=== PATIENT | male | born 1975 | race Caucasian/White ===

== ENCOUNTER → 2016-05-27 | Outpatient (CLI) | payer BC ==
--- NOTE | 2016-05-28 05:47 | SPLIT NIGHT TECHNICIAN REPORT ---
[facility] Split Night Polysomnogram - Cinema Or Theatre Manager Report Study date: 05/27/2016 Referring Physician: Tavo Ann Pulmonary Name: MADDY NGUYỄN Cinema Or Theatre Manager: FARZANA Dudley. Date of : 1975 Height: 40 years, Height 6' 1" Sex: Male Weight: 269 lbs Age: 40 Neck Circum: 18 inches BMI: Medications: 35.49 Pantoprazole, Ranitidine Patient History 40 yr. old male here for a modified split night sleep study is AHI is > 15. Patient complains of witnessed apneas and snoring. Patients [place] sleepiness scale score is 12/24. Parameters Monitored NPSG: E1-M2, E2-M1, Fp1-M2, Fp2-M1, F3-M2, F4-M2, F4-M1, C3-M2, C4-M2, C4-M1, O1-M2, O2-M2, O2-M1, T3-M2, T4-M1, P3-M2, P4-M1, CHIN1, CHIN2, HR, EKG, Legs, PFLOW, SNOR, FLOW, CFLOW, Tidal Volume, THOR, ABDO, SpO2, PLTH, CPRESS, ETCO2 Wave, ETCO2, pH SLEEP SUMMARY DATA DIAGNOSTIC TREATMENT Lights Out: 9:35:07 PM 12:53:37 AM Lights On: 12:44:07 AM 5:35:07 AM Total Recording Time (TRT): 187.0 min. 280.5 min. Total Sleep Time (TST): 123.5 min. 232.5 min. NREM Time: 123.5 min. 189.0 min. REM Time: 0.0 min. 43.5 min. Sleep Period Time (SPT): 157.0 min. 268.5 min. Sleep Efficiency (SE): 66 % 83 % Sleep Latency: 30.0 min. 13.0 min. Arousal Index: 19.9 10.1 PAP Treatment Levels: 4, 5, 6, 7, 8, 9, 10 * Optimal Pressure(s) SLEEP STAGING DATA DIAGNOSTIC TREATMENT Duration (min) TST % Duration (min) TST % Stage Wake: 63.5 min. -- 48.0 min. -- WASO: 35.5 min. -- 36.0 min. -- NREM: 123.5 min. 100 % 189.0 min. 81 % Stage N1: 30.5 min. 25 % 39.5 min. 17 % Stage N2: 66.0 min. 53 % 87.5 min. 38 % Stage N3: 27.0 min. 22 % 62.0 min. 27 % REM: 0.0 min. 0 % 43.5 min. 19 % POSITIONAL DATA Event Count Index Event Count Index Supine: 105 77.3 53 24.7 Supine NREM: 105 77.3 52 28.4 Supine REM: N/A N/A 1 3 Non-Supine: 43 60.0 30 17.4 Non-Supine NREM: 43 60.0 28 21.3 Non-Supine REM: N/A N/A 2 4.9 AROUSAL SUMMARY DATA: Event Count Index Event Count Index Apnea Arousals: 1 1.9 7 2.3 Hypopnea Arousals: 16 7.8 18 4.6 Snore Arousals: 12 5.8 9 2.3 PLM Arousals: 1 0.5 1 0.3 Non-Specific Arousals: 11 5.3 15 3.9 Total Arousals: 41 19.9 39 10.1 MYOCLONUS (PLM) Event Count Index Event Count Index PLM: 6 2.9 3 0.8 PLM AROUSAL: 1 0.5 1 0.3 PLM W/O AROUSAL 6 2.9 2 0.5 PLM W/RESP EVENT 0 0.0 0 0.0 MYOCLONUS (PLM) Event Count Index Event Count Index LM: 3 18.5 7 1.8 LM AROUSAL: 3 1.5 0 0.0 LM W/O AROUSAL LM W/RESP EVENT LM NON SPECIFIC 33 16.0 9 2.3 HEART RATE DATA DIAGNOSTIC TREATMENT Sleep (bpm): 73 73 REM (bpm): N/A 92 NREM (bpm): 91 93 Tachycardia Count: 0 0 Tachycardia Duration: 0.00 0 Bradycardia Count: 0 0 Bradycardia Duration: 0.00 0 DIAGNOSTIC PORTION TREATMENT PORTION RESPIRATORY DATA Event Count Index Event Count Index AHI: -- 71.4 -- 21.4 RDI: -- 71.9 -- 21 Obstructive Apnea: 1 0.5 3 0.8 Central Apnea: 1 0.5 6 1.5 Mixed Apnea: 2 1.0 0 0.0 Hypopnea: 143 69.5 74 19.1 RERA: 1 0.5 0 0.0 Total Apneas: 4 1.9 9 2.3 RESPIRATORY DATA REM NREM SLEEP REM NREM SLEEP Supine Position: Obstructive Apneas: N/A 1 1 0 2 2 Central Apneas: N/A 1 1 0 3 3 Mixed Apneas: N/A 1 1 0 0 0 Hypopneas: N/A 102 102 1 47 48 RERA N/A 0 0 0 0 0 Total Supine Events: N/A 105 105 1 52 53 Supine AHI: N/A 77.3 77.3 3 28.4 24.7 Supine RDI: N/A 77.3 77.3 3.2 28.4 24.7 REM NREM SLEEP REM NREM SLEEP Non-Supine Position: Obstructive Apneas: N/A 0 0 0 1 1 Central Apneas: N/A 0 0 0 3 3 Mixed Apneas: N/A 1 1 0 0 0 Hypopneas: N/A 41 41 2 24 26 RERA N/A 1 1 0 0 0 Total Supine Events: N/A 43 43 2 28 30 Supine AHI: N/A 60.0 60.0 4.9 21.3 17.4 Supine RDI: N/A 61.4 61.4 4.9 21.3 17.4 OXYGEN DESTAURATION DATA: Event Count Index Event Count Index REM Desaturations: N/A N/A 3 4.1 NREM Desaturations: 164 79.7 88 27.9 SNORE DATA DIAGNOSTIC TREATMENT Snore Time: 10.6 1:06:37 AM Snore TST%: 4 4 Snore Arousal Count: 12 9 Snore Arousal Index: 5.8 2.3 Desaturation Event Summary: Minimum %SpO2 Event Count Mean/Min/Max Duration(sec.) Desaturation Index % Time In Bed > 90 297 20.0 / 5.0 / 60.0 45.1 84.6 86 - 90 39 13.4 / 5.0 / 30.3 33.1 15.1 81 - 85 0 N/A 0.0 0.2 76 - 80 0 N/A 0.0 0.0 71 - 75 0 N/A 0.0 0.0 66 - 70 0 N/A 0.0 0.0 61 - 65 0 N/A 0.0 0.0 56 - 60 0 N/A 0.0 0.0 51 - 55 0 N/A 0.0 0.0 < 50 0 N/A 0.0 0.0 OXYGEN SATURATION DATA DIAGNOSTIC TREATMENT SpO2 Mean Sleep: 91 % 93 % SpO2 Mean REM: N/A % 92 % SpO2 Mean NREM: 91 % 93 % SpO2 Minimum Sleep: 84 % 82 % SpO2 Minimum REM: N/A % 89 % SpO2 Minimum NREM: 84 % 82 % Time Below 90% (TST): 27.5 7.1 Time Below 88% (TST): 5.3 1.9 Total REM NREM Awake <50% 0.0 min. 0.0 min. 0.0 min. 0.0 min. 51 - 60% 0.0 min. 0.0 min. 0.0 min. 0.0 min. 61 - 70% 0.0 min. 0.0 min. 0.0 min. 0.0 min. 71 - 80% 0.0 min. 0.0 min. 0.0 min. 0.0 min. 81 - 90% 71.8 min. 1.6 min. 59.3 min. 10.9 min. 91 - 100% 395.3 min. 41.9 min. 253.2 min. 100.2 min. Average 92 92 92 93 Minimum SpO2 82 89 82 83 Desaturation Event Index 38.5 4.1 48.4 27.4 # Desat. Events below 89% 129 N/A 112 17 Time(%) with Saturation below 89% 4.3 0.0 3.7 0.6 Time(min.) with Saturation below 89% 20.3 0.0 17.3 3.0 Recording Cinema Or Theatre Manager Comments: Mr. Nguyễn slept in the right, left, and supine positions. No cardiac arrhythmia or PLMs noted. No bruxism noted. Snoring was noted and scored as a 4 on a scale of 0 through 5. (0=no snoring, 5=snoring loud enough to be heard through a closed door or down the [address]) At 12:53 am , Mr. Nguyễn met specific Split-Night criteria during the diagnostic portion of this study. CPAP was initiated at +4 CMH2O room air and up-titrated to a of +10 CMH2O No Cflex. A medium Quattro air, was used during titration. Mr. Nguyễn did not wake to use the during the night. Mr. Nguyễn stated, I did not sleep as well as I do when I am in my own bed. The final report will be interpreted and signed by a sleep physician. The completed physician report will then be placed in the patient medical record. Therapy Event: Therapy (cm H20) 0 4 5 6 7 8 9 10 Total Time at Pressure (min.) 187.0 49.0 5.0 70.5 10.9 86.1 22.3 36.8 TST at Pressure (min.) 123.5 19.0 5.0 68.0 10.9 82.1 17.5 30.0 # Periods 1 1 1 1 1 1 1 1 Sleep Onset (min.) 30.0 13.0 0.0 0.0 0.0 0.0 0.0 0.3 REM Onset (min.) N/A N/A N/A 33.0 N/A 54.6 0.0 N/A Sleep Efficiency % 66 38 100 96 100 95 78 81 Wakefulness (%) 34.0 61.2 0.0 3.5 0.0 4.6 21.2 18.4 Wakefulness (min.) 63.5 30.0 0.0 2.5 0.0 4.0 4.7 6.8 NREM 1 (%) 16.3 30.6 10.1 12.1 0.0 9.3 13.5 12.2 NREM 1 (min.) 30.5 15.0 0.5 8.5 0.0 8.0 3.0 4.5 NREM 2 (%) 35.3 8.2 89.9 29.8 100.0 19.9 20.2 69.3 NREM 2 (min.) 66.0 4.0 4.5 21.0 10.9 17.1 4.5 25.5 NREM 3 (%) 14.4 0.0 0.0 19.9 0.0 55.8 0.0 0.0 NREM 3 (min.) 27.0 0.0 0.0 14.0 0.0 48.0 0.0 0.0 REM (%) 0.0 0.0 0.0 34.7 0.0 10.4 45.1 0.0 REM (min.) 0.0 0.0 0.0 24.5 0.0 9.0 10.0 0.0 # Arousals 41 7 1 12 0 10 4 5 Arousal Index 19.9 22.1 12.1 10.6 0.0 7.3 13.7 10.0 # Snore 523 8 28 113 118 22 7 4 Snore Index 254.1 25.2 338.1 99.7 648.7 16.1 23.9 8.0 AHI 71.4 69.4 48.3 18.5 27.5 13.9 27.4 8.0 AHI Supine 77.3 48.0 N/A 78.3 27.5 13.9 27.4 53.3 AHI Non-Supine 60.0 72.6 48.3 6.4 N/A N/A N/A 0.0 NREM AHI 71.4 69.4 48.3 26.2 27.5 14.8 64.0 8.0 REM AHI N/A N/A N/A 4.9 N/A 6.7 0.0 N/A RDI 71.9 69.4 48.3 18.5 27.5 13.9 27.4 8.0 # Obstructive 1 1 0 1 0 1 0 0 # Central Ap 1 3 0 1 0 1 0 1 # Mixed 2 0 0 0 0 0 0 0 # Hypopneas 143 18 4 19 5 17 8 3 RERAS 1 0 0 0 0 0 0 0 Total Respiratory Events 148 22 4 21 5 19 8 4 Time Below SpO2 89.00% (min.) 14.2 1.0 0.0 1.6 0.6 0.0 0.0 0.0 Mean NREM SpO2 (%) 91 93 92 92 91 93 94 93 Mean REM SpO2 (%) N/A N/A N/A 92 N/A 92 93 N/A Mean Sleep SpO2 (%) 91 93 92 92 91 93 94 93 Min NREM SpO2 (%) 84 84 89 82 85 89 90 90 Min REM SpO2 (%) N/A N/A N/A 89 N/A 89 92 N/A Position Supine (min.) 81.5 2.5 0.0 11.5 10.9 82.1 17.5 4.5 Position Non-supine (min.) 42.0 16.5 5.0 56.5 0.0 0.0 0.0 25.5 LM Index Sleep 21.4 0.0 0.0 4.4 0.0 2.2 6.8 0.0 LM Index NREM 21.4 0.0 0.0 1.4 0.0 0.8 0.0 0.0 LM Index REM N/A N/A N/A 9.8 N/A 13.4 12.0 N/A Mean Heart Rate (bpm) 73 69 67 78 66 73 73 65 Min Heart Rate (bpm) 57 58 58 58 61 55 55 54
--- NOTE | 2016-05-29 14:01 | POLYSOMNOGRAPH REPORT ---
REFERRING PHYSICIAN: Dr. Tavo Ann. CLINICAL DATA: The patient is a 40-year-old male with a BMI of 35.49. He was referred by Dr. Tavo Ann. A split study was done. His history is that of snoring, observed apneas, nocturnal gasping, fatigue, and restless legs. His [place] sleepiness scale score is 12 out of a possible 24. SLEEP ARCHITECTURE: For the diagnostic portion of the study, the total sleep period was 157.0 minutes. The total sleep time was 123.5 minutes. The sleep efficiency was 66%. Sleep latency was 30 minutes. The arousal index was 19.9. Sleep consisted of stage N1 25%, stage N2 53%, stage N3 22%, and stage REM 0%. For the treatment portion of the study the sleep period time was 268.5 minutes. The total sleep time was 232.5 minutes. The sleep efficiency was 83%. Sleep latency was 13 minutes. The arousal index was 10.1. Sleep consisted of stage N1 17%, stage N2 38%, stage N3 27%, and stage REM 19%. AROUSAL DATA: During the diagnostic portion of the study, the patient had a total of 41 arousals for an index of 19.9. These included 1 apnea arousal, 16 hypopnea arousals, 12 snoring arousals, 1 PLM arousal, and 11 nonspecific arousals. Following treatment, the patient had 39 arousals for an index of 10.1. These consisted of 7 apnea arousals, 18 hypopnea arousals, 9 snoring arousals, 1 PLM arousal, and 15 nonspecific arousals. PLM DATA: Prior to treatment, the patient had a total of 6 periodic limb movements for an index of 2.9. Following treatment, he had 3 periodic limb movements for an index of 0.8. EKG: The underlying cardiac rhythm was normal sinus. The cardiac rates ranged from 73-93 beats per minute. No arrhythmias were noted. RESPIRATORY DATA: Severe sleep apnea was documented prior to treatment. The diagnostic apnea hypopnea index was 71.4 events per hour. There was 1 obstructive apnea, 1 central apnea, 2 mixed apneas, and 143 hypopneas. Following treatment with nasal CPAP the mean apnea hypopnea index was 21.4. The events including 3 obstructive apneas, 6 central apneas, and 74 hypopneas. At the final pressure of 10 cm the patient had an apnea hypopnea index of 8.0. OXIMETRY DATA: During the diagnostic portion of the study the lowest saturation was 84%. Mean saturation was 91%. The time below 88% was 5.3 minutes. During the treatment portion of the study the patient had a minimum saturation of 82%. The mean saturation was 93%. There was a total of only 1.9 minutes with saturations less than 88%. At the final pressure all saturations were above 90%. CHILDREN COUNSELOR COMMENTS AND TREATMENT SUMMARY: The patient slept in the right, left, and supine positions. No cardiac arrhythmia or PLMs were noted. Snoring was noted as a 4 on a scale of 0 through 5. The patient met specific split night criteria during the diagnostic portion of the study. CPAP was initiated at 4 cm and was titrated up to a final pressure of 10 cm. A medium Quattro Air was used during titration. Following the study, the patient indicated he did not sleep as well as he usually does in his own bed. IMPRESSION: Obstructive sleep apnea -- severe. COMMENTS: The patient has severe sleep apnea. As a result of this a split study was done. He was ultimately treated with nasal CPAP at 10 cm. During the CPAP titration the frequency of his events continued to improve. He still had some residual events at the final pressure of 10 cm with an apnea hypopnea index of 8.0. Oxygenation improved with nasal CPAP. He did develop some REM sleep during the treatment portion of the study. His sleep efficiency improved. RECOMMENDATIONS: 1. It is advised that the patient be started on nasal CPAP at 10 cm. 2. It is suggested that he be ordered a CPAP mask Quattro Air size medium. 3. A weight reduction program is advised in light of the elevation of body mass index of 35.49 kilograms per square cm. 4. The patient should be seen in followup between day 31 and day 90 after he has initiated on nasal CPAP therapy.
== END | disposition home or self-care (01) ==
LOC: C.NEUR 21:00
PROVIDERS: ATTEND Internal Medicine Pulmonary Disease
DX: K21.9 Gastro-esophageal reflux disease without esophagitis (principal); G47.23 Circadian rhythm sleep disorder, irregular sleep wake type

== ENCOUNTER → 2016-06-02 | Outpatient (CLI) | payer BC ==
[~2016-06-02] VITALS: Ht 185.4 cm; Wt 123.0 kg
[2016-06-02 15:30] VITALS: BP_SYST 146; BP_SYST 157; BP_DIAS 100; BP_DIAS 102; PULSE 89; Ht 185.4 cm; Wt 123.0 kg
== END | disposition home or self-care (01) ==
LOC: C.NEUR 14:30
PROVIDERS: ATTEND Internal Medicine Pulmonary Disease
DX: G47.33 Obstructive sleep apnea (adult) (pediatric) (principal)

== ENCOUNTER → 2016-07-25 | Outpatient (CLI) | payer BC | END | disposition home or self-care (01) | LOC: C.LABBC 07:10 | PROVIDERS: ATTEND Family Medicine | DX: Z13.1 Encounter for screening for diabetes mellitus (principal); Z13.220 Encounter for screening for lipoid disorders ==

== ENCOUNTER → 2016-08-22 | Outpatient (CLI) | payer BC ==
[2016-08-22 11:49] LABS: ESTIMATED AVERAGE GLUCOSE 117 mg/dl; HA1C FLAG Normal (Normal)
== END | disposition home or self-care (01) ==
LOC: C.LABBC 07:30
PROVIDERS: ATTEND Family Medicine
DX: R73.01 Impaired fasting glucose (principal)

== ENCOUNTER 2017-04-20 05:01 | Inpatient (IN) | payer BC ==
[~2017-04-20] VITALS: Ht 185.4 cm; Wt 108.2 kg
[2017-04-20] MEDS ORDERED: SODIUM CHLORIDE 0.9% 1000ML 1,000 ML IV STA (05:16)
[2017-04-20] MEDS ORDERED: MoRPHine SULFATE 4 MG/ML 1 ML CARP\\VIAL IV STA (05:16)
[2017-04-20] MEDS ORDERED: ONDANSETRON INJ 2 MG/ML 2 ML VIAL IV STA ×2 (05:16→07:48)
[2017-04-20 06:00] LABS: BASO % 0.4 %; BASO ABS # 0.05 K/uL (0-0.2); EOS % 0.5 %; EOS ABS # 0.06 K/uL (0-0.5); HEMOGLOBIN 17.3 g/dL (14.0-18.0); IG# 0.04 K/uL (0.00-0.02); LYMPH % 12.7 %; LYMPH ABS # 1.66 K/uL (1.2-3.4); MEAN CELL VOLUME 87.6 fL (80-100); MEAN CORPUSCULAR HEMOGLOBIN 30.3 pg (25-34); MEAN CORPUSCULAR HGB CONC 34.6 g/dl (32-36); MEAN PLATELET VOLUME 9.1 fL (7.4-10.4); MONO % 5.8 %; MONO ABS # 0.76 K/uL (0.11-0.59); NEUT % 80.3 %; NEUT ABS # 10.52 K/uL (1.4-6.5); PLATELET COUNT 241 K/uL (130-400); RED CELL DISTRIBUTION WIDTH CV 13.1 % (11.5-14.5); RED CELL DISTRIBUTION WIDTH SD 41.6 fL (36.4-46.3); WHITE BLOOD COUNT 13.09 K/uL (4.8-10.8)
[2017-04-20] MEDS ORDERED: HYDROmorphone INJ 1 MG/ML SYR IV STA ×2 (06:03→07:34)
[2017-04-20 06:10] LABS: ALBUMIN 4.2 gm/dl (3.4-5.0); ALT/SGPT 43 U/L (12-78); AST/SGOT 22 U/L (15-37); BLOOD UREA NITROGEN 17 mg/dl (7-18); CALCIUM 9.3 mg/dl (8.5-10.1); CARBON DIOXIDE 27 mmol/L (21-32); CREATININE 1.38 mg/dl (0.60-1.40); GLUCOSE 133 mg/dl (70-99); LIPASE 96 U/L (73-393); POTASSIUM 4.3 mmol/L (3.5-5.1); SODIUM 135 mmol/L (136-145)
[2017-04-20 06:15] LABS: ALKALINE PHOSPHATASE 122 U/L (45-117); TOTAL PROTEIN 8.6 gm/dl (6.4-8.2)
--- NOTE | 2017-04-20 09:38 | Surgery Consultation ---
Consultation Date of Consultation: Apr 20, 2017. Attending Physician: History of Present Illness pt is a 41 roel old male who presents to ER for one day history RUQ pain, with nausea and vomiting, the pain is located at RUQ, pt denies fever, no diarrhea, Social History Smokeless Tobacco Use: Yes Alcohol Use: occasionally Drug Use: none Allergies Coded Allergies: No Known Allergies (Unverified , 04/20/17) Home Medications No Active Prescriptions or Reported Meds Review of Systems Constitutional: No fever, No chills, No sweats, No weight loss, No weakness, No fatigue, No problem reported Eyes: No worsening of vision, No eye pain, No redness, No discharge, No diplopia, No problem reported ENT: No hearing loss, No unusual epistaxis, No nasal symptoms, No sore throat, No tinnitus, No dental problems, No trouble swallowing, No problem reported Respiratory: No cough, No sputum, No wheezing, No shortness of breath, No dyspnea on exertion, No dyspnea at rest, No hemoptysis, No problem reported Cardiovascular: No chest pain, No orthopnea, No PND, No edema, No claudication , No palpitations, No problem reported Abdomen: + pain, + nausea, + vomiting Musculoskeletal: No joint pain, No muscle pain, No swelling, No calf pain, No problem reported Genitourinary - Male: No hematuria, No dysuria, No urinary frequency, No urinary urgency, No urinary hesitancy, No urinary retention, No urinary incontinence, No penile discharge, No lesions, No impotence, No problem reported Neurologic: No memory loss, No paralysis, No weakness, No numbness/tingling, No vertigo, No balance problems, No problem reported Psychiatric: No depression symptoms, No anhedonism, No anxiety, No insomnia, No substance abuse, No problem reported Endocrine: No fatigue, No excessive thirst, No excessive urination, No problem reported Hematologic / Lymphatic: No abnormal bleeding/bruising, No clotting problems, No swollen lymph nodes, No night sweats, No problem reported Allergic / Immunologic: No environmental allergies, No seasonal allergies, No pet sensitivities, No food allergies, No hives, No frequent infections, No poor healing, No prolonged convalescence, No problem reported Physical Exam Date Time Temp Pulse Resp B/P (MAP) Pulse Ox O2 Delivery O2 Flow Rate FiO2 04/20/17 07:33 58 16 142/104 92 Room Air 04/20/17 06:44 58 149/91 94 Room Air 04/20/17 05:56 54 04/20/17 05:49 Room Air 04/20/17 05:49 Room Air 04/20/17 05:06 36.3 58 18 158/96 99 Room Air General Appearance: WD/WN, + mild distress Head: normocephalic Eyes: normal inspection ENT: normal ENT inspection Neck: supple, no JVD Respiratory/Chest: chest non-tender, lungs clear, normal breath sounds, no respiratory distress Cardiovascular: regular rate, rhythm, no edema, no gallop, no JVD, no murmur Abdomen/GI: normal bowel sounds, no organomegaly, no pulsatile mass, normal rectal exam, + tenderness (at RUQ, no rebound pain) Extremities/Musculoskelatal: normal inspection, no calf tenderness, normal capillary refill Neurologic/Psych: no motor/sensory deficits, alert, normal mood/affect Skin: normal color, warm/dry, no rash Laboratory Results Last 24 Hours Test 04/20/17 05:45 04/20/17 05:49 White Blood Count 13.09 K/uL Red Blood Count 5.71 M/uL Hemoglobin 17.3 g/dL Hematocrit 50.0 % Mean Corpuscular Volume 87.6 fL Mean Corpuscular Hemoglobin 30.3 pg Mean Corpuscular Hemoglobin Concent 34.6 g/dl Platelet Count 241 K/uL Mean Platelet Volume 9.1 fL Neutrophils (%) (Auto) 80.3 % Lymphocytes (%) (Auto) 12.7 % Monocytes (%) (Auto) 5.8 % Eosinophils (%) (Auto) 0.5 % Basophils (%) (Auto) 0.4 % Neutrophils # (Auto) 10.52 K/uL Lymphocytes # (Auto) 1.66 K/uL Monocytes # (Auto) 0.76 K/uL Eosinophils # (Auto) 0.06 K/uL Basophils # (Auto) 0.05 K/uL RDW Standard Deviation 41.6 fL RDW Coefficient of Variation 13.1 % Immature Granulocyte % (Auto) 0.3 % Immature Granulocyte # (Auto) 0.04 K/uL Sodium Level 135 mmol/L Potassium Level 4.3 mmol/L Chloride Level 103 mmol/L Carbon Dioxide Level 27 mmol/L Anion Gap 5.0 mmol/L Blood Urea Nitrogen 17 mg/dl Creatinine 1.38 mg/dl Est Creatinine Clear Calc Drug Dose 90.0 ml/min Estimated GFR () 72.6 Estimated GFR (Non- 62.6 BUN/Creatinine Ratio 12.4 Random Glucose 133 mg/dl Calcium Level 9.3 mg/dl Total Bilirubin 1.4 mg/dl Direct Bilirubin 0.3 mg/dl Aspartate Amino Transf (AST/SGOT) 22 U/L Alanine Aminotransferase (ALT/SGPT) 43 U/L Alkaline Phosphatase 122 U/L Troponin I < 0.015 ng/ml Total Protein 8.6 gm/dl Albumin 4.2 gm/dl Lipase 96 U/L Bedside Troponin I < 0.030 ng/ml Assessment & Plan Assessment: pt is a 41 yo male who presents to ER with one day history RUQ pain , pt had U/S study- acute cholecystitis, with cholelithiasis, IMP: acute cholecystitis, with cholelithiasis, Plan, admit to hospital, IV fluid, antibiotic, control pain, pt will have laparoscopic cholecystectomy, possible open or cholangiogram, D/W pt and his about benefits, risks [place] alternatives of the procedure, the risks - infection, bleeding, injury CBD, bowel, may need ERCP, DVT, PR, , pt and his understood, they agree with the plan, I answered all questions,
[2017-04-20] MEDS ORDERED: ACETAMINOPHEN 325 MG TAB PO PRN (09:45)
[2017-04-20] MEDS ORDERED: ONDANSETRON INJ 2 MG/ML 2 ML VIAL IV PRN (09:45)
[2017-04-20] MEDS ORDERED: HYDROmorphone INJ 1 MG/ML SYR ONE (09:47)
--- NOTE | 2017-04-20 10:02 | DIAGNOSTIC IMAGING REPORT ---
ULTRASOUND RIGHT UPPER QUADRANT ABDOMEN CLINICAL HISTORY: Right upper quadrant abdominal pain. COMPARISON STUDY: No priors. TECHNIQUE: Real-time, grayscale, and color flow sonography of the right upper quadrant of the abdomen was performed. Images are reviewed in the transverse and longitudinal planes. FINDINGS: Liver: The liver is enlarged and demonstrates heterogeneously increased echotexture consistent with severe hepatic steatosis. Note that this degrades acoustic penetration of the liver. There is no intrahepatic biliary ductal dilatation. The main portal vein is patent. Gallbladder: The gallbladder is distended and abnormal in appearance. The gallbladder wall is thickened and edematous measuring up to 7 mm. Stones and sludge are identified. There is trace pericholecystic fluid. A sonographic Coleman's sign is reportedly present. The common bile duct measures up to 0.7 cm in diameter. Pancreas: Not well visualized due to overlying bowel gas. Right kidney: Survey images of the right kidney demonstrate normal size and echotexture. There is no hydronephrosis. Ascites: None. IMPRESSION: 1. Cholelithiasis, biliary sludge, and sonographic findings consistent with acute cholecystitis. 2. Hepatomegaly and severe hepatic steatosis. Electronically signed by: Jonas Hopson M.D. 04/20/2017 10:01 AM Dictated Date/Time: 04/20/2017 9:59 AM
[2017-04-20 10:55] VITALS: Ht 185.4 cm; Wt 108.2 kg
[2017-04-20] MEDS: HYDROmorphone INJ 1 MG/ML SYR IV PRN ×4 (11:19→23:42)
--- NOTE | 2017-04-20 11:22 | DIAGNOSTIC IMAGING REPORT ---
SINGLE VIEW CHEST CLINICAL HISTORY: Atypical chest pain. FINDINGS: An AP, portable, upright chest radiograph is obtained. No prior studies are available for comparison at the time of dictation. The cardiomediastinal silhouette is unremarkable. The lungs and pleural spaces are clear. No pneumothorax is seen. The bony thorax is grossly intact. IMPRESSION: No active disease in the chest. Electronically signed by: Jonas Hopson M.D. 04/20/2017 11:21 AM Dictated Date/Time: 04/20/2017 11:20 AM
[2017-04-20 11:35] VITALS: BP 148/97; PULSE 60; TEMP 36.5; O2SAT 95
[2017-04-20] MEDS: D5W AND 1/2NSS + 20MEQ KCL 1,000 ML IV SCH ×2 (11:40→23:34)
[2017-04-20] MEDS ORDERED: CEFTRIAXONE SOD INJ 1 GM in DEXTROSE 5% ADD-VANTAGE 50ML 50 ML IV SCH (12:00)
[2017-04-20] MEDS: METRONIDAZOLE / NSS 500 MG in PREMIXED NSS 0 ML IV SCH ×2 (13:21→22:13)
[2017-04-20 15:59] VITALS: BP 169/107; PULSE 77; TEMP 36.6; O2SAT 97
--- NOTE | 2017-04-20 22:13 | EMERGENCY ROOM VISIT NOTE ---
History First contact with patient: 05:13 Chief Complaint: ABDOMINAL PAIN Stated Complaint: STOMACH PAIN AND LOWER BACK PAIN History of Present Illness The patient is a 41 year old male who presents to the Emergency Room with complaints of right upper quadrant pain for the past several hours after eating pork and sauerkraut tonight. He is similar episode one year ago. No problems with his gallbladder the past. Patient tried Prilosec with no relief of symptoms. Pain currently 8 out of 10. Nothing makes it better or worse. Described as aching. It does not radiate. Patient denies chest pain, dyspnea, fever, chills, vomiting, diarrhea, back pain, urinary symptoms, testicular pain or penile pain. Review of Systems See HPI for pertinent positives & negatives. A total of 10 systems reviewed and were otherwise negative. Past Medical/Surgical History Medical Problems: (1) Acute cholecystitis GERD Social History Smoking Status: Never Smoker Smokeless Tobacco Use: Yes Alcohol Use: occasionally Drug Use: none Marital Status: Housing Status: lives with family Occupation Status: employed Current/Historical Medications No Active Prescriptions or Reported Meds Physical Exam Vital Signs Date Time Temp Pulse Resp B/P (MAP) Pulse Ox O2 Delivery O2 Flow Rate FiO2 04/20/17 09:31 82 16 181/107 97 Room Air 04/20/17 07:33 58 16 142/104 92 Room Air 04/20/17 06:44 58 149/91 94 Room Air 04/20/17 05:56 54 04/20/17 05:49 Room Air 04/20/17 05:49 Room Air 04/20/17 05:06 36.3 58 18 158/96 99 Room Air Physical Exam VITALS: Vitals are noted on the nurse's note and reviewed by myself. Vital signs hypertensive. GENERAL: Pleasant male who appears in pain, in no acute distress, nondiaphoretic , well-developed well-nourished. SKIN: The skin was without rashes, erythema, edema, or bruising. There is no tenting of the skin. Capillary reflex less than 2 seconds. HEAD: Normocephalic atraumatic. EARS: External auditory canals clear, tympanic membranes pearly kraus without erythema or effusion bilaterally. EYES: Pupils equal round and reactive to light and accommodation. Conjunctivae without injection, sclerae without icterus. Extraocular movements intact. NOSE: Patent, turbinates without inflammation or discharge. MOUTH: Mucous membranes moist. Pharynx without erythema or exudate. Uvula midline. Airway patent. Tongue does not deviate. NECK: Supple without nuchal rigidity. No lymphadenopathy. No thyromegaly. Cervical spine is nontender. No JVD. HEART: Regular rate and rhythm without murmurs gallops or rubs. LUNGS: Clear to auscultation bilaterally without wheezes, rales or rhonchi. No dullness to percussion. No retractions or accessory muscle use. ABDOMEN: Positive bowel sounds x 4. Normal tympanic percussion. Soft, tender to palpation right upper quadrant, no CVA tenderness, without masses or organomegaly. No guarding or rebound tenderness. MUSCULOSKELETAL: No muscle atrophy, erythema, or edema noted. NEURO: Patient was alert and oriented to person place and time. Normal sensation to light and sharp touch. No focal neurological deficits. Medical Decision & Procedures Laboratory Results 04/20/17 05:45 Red Blood Count 5.71, Mean Corpuscular Volume 87.6, Mean Corpuscular Hemoglobin 30.3, Mean Corpuscular Hemoglobin Concent 34.6, Mean Platelet Volume 9.1, Neutrophils (%) (Auto) 80.3, Lymphocytes (%) (Auto) 12.7, Monocytes (%) (Auto) 5.8, Eosinophils (%) (Auto) 0.5, Basophils (%) (Auto) 0.4, Neutrophils # (Auto) 10.52, Lymphocytes # (Auto) 1.66, Monocytes # (Auto) 0.76, Eosinophils # (Auto) 0.06, Basophils # (Auto) 0.05 04/20/17 05:45 Test 04/20/17 05:45 04/20/17 05:49 White Blood Count 13.09 K/uL (4.8-10.8) Red Blood Count 5.71 M/uL (4.7-6.1) Hemoglobin 17.3 g/dL (14.0-18.0) Hematocrit 50.0 % (42-52) Mean Corpuscular Volume 87.6 fL (80-100) Mean Corpuscular Hemoglobin 30.3 pg (25-34) Mean Corpuscular Hemoglobin Concent 34.6 g/dl (32-36) Platelet Count 241 K/uL (130-400) Mean Platelet Volume 9.1 fL (7.4-10.4) Neutrophils (%) (Auto) 80.3 % Lymphocytes (%) (Auto) 12.7 % Monocytes (%) (Auto) 5.8 % Eosinophils (%) (Auto) 0.5 % Basophils (%) (Auto) 0.4 % Neutrophils # (Auto) 10.52 K/uL (1.4-6.5) Lymphocytes # (Auto) 1.66 K/uL (1.2-3.4) Monocytes # (Auto) 0.76 K/uL (0.11-0.59) Eosinophils # (Auto) 0.06 K/uL (0-0.5) Basophils # (Auto) 0.05 K/uL (0-0.2) RDW Standard Deviation 41.6 fL (36.4-46.3) RDW Coefficient of Variation 13.1 % (11.5-14.5) Immature Granulocyte % (Auto) 0.3 % Immature Granulocyte # (Auto) 0.04 K/uL (0.00-0.02) Anion Gap 5.0 mmol/L (3-11) Est Creatinine Clear Calc Drug Dose 90.0 ml/min Estimated GFR () 72.6 Estimated GFR (Non- 62.6 BUN/Creatinine Ratio 12.4 (10-20) Calcium Level 9.3 mg/dl (8.5-10.1) Total Bilirubin 1.4 mg/dl (0.2-1) Direct Bilirubin 0.3 mg/dl (0-0.2) Aspartate Amino Transf (AST/SGOT) 22 U/L (15-37) Alanine Aminotransferase (ALT/SGPT) 43 U/L (12-78) Alkaline Phosphatase 122 U/L (45-117) Troponin I < 0.015 ng/ml (0-0.045) Total Protein 8.6 gm/dl (6.4-8.2) Albumin 4.2 gm/dl (3.4-5.0) Lipase 96 U/L (73-393) Bedside Troponin I < 0.030 ng/ml (0-0.045) Medications Administered Medications (Trade) Dose Ordered Sig/Carlos Alberto Route Start Time Stop Time Status Last Admin Dose Admin Morphine Sulfate (MoRPHine SULFATE INJ) 4 mg NOW STAT IV 04/20/17 05:16 04/20/17 05:18 DC 1/1/18 05:54 4 MG Ondansetron HCl (Zofran Inj) 4 mg NOW STAT IV 04/20/17 05:16 04/20/17 05:18 DC 04/20/17 05:55 4 MG Sodium Chloride 1,000 ml @ 999 mls/hr Q1H1M STAT IV 04/20/17 05:16 04/20/17 06:16 DC 04/20/17 05:16 999 MLS/HR Hydromorphone HCl (Dilaudid Inj) 1 mg NOW STAT IV 04/20/17 06:03 04/20/17 06:04 DC 04/20/17 06:03 1 MG Hydromorphone HCl (Dilaudid Inj) 1 mg NOW STAT IV 04/20/17 07:34 04/20/17 07:35 DC 04/20/17 08:09 1 MG Ondansetron HCl (Zofran Inj) 4 mg NOW STAT IV 04/20/17 07:48 04/20/17 07:49 DC 04/20/17 08:09 4 MG ED Course Prior records/ancillary studies reviewed. Triage Nursing notes reviewed. Additional history obtained from family. The patient's history was concerning for abdominal pain. Differential diagnosis: Etiologies such as appendicitis, diverticulitis, PUD, biliary pathology, UTI, pancreatitis, obstruction, mesenteric ischemia, aortic pathology, infections, inflammatory bowel disease, renal colic, as well as others were entertained. Physical examination findings: As above. ER treatment provided: Morphine, Zofran, IV fluids On reassessment the patient felt better. Diagnostics interpreted by me: ECG: Normal sinus, normal intervals, no acute ST-T wave changes. Impression sinus bradycardia interpreted by myself The labs revealed negative troponin. Mild leukocytosis Imaging studies: Ultrasound was reviewed concerning for possible acute cholecystitis Chest x-ray with no acute consolidation, pneumothorax or free air per my interpretation Consultation: A consultation was placed with the surgeon, Dr. Cartwright. The case was discussed and diagnostics were reviewed. The patient was evaluated in the ER for further treatment. Exam and history seem consistent with acute cholecystitis. Patient will be evaluated by surgery. His pain was managed. He was afebrile and nontoxic.. By the evaluation outlined above emergent etiologies such as appendicitis, diverticulitis, PUD, UTI, pancreatitis, obstruction, mesenteric ischemia, aortic pathology, infections, inflammatory bowel disease, renal colic, as well as others were deemed relatively unlikely. The pt informed about the findings as listed above. All questions were answered and pleased with the treatment. Case reviewed with my attending Medical Decision As above Medication Reconcilliation Current Medication List: was personally reviewed by me Blood Pressure Screening Patient's blood pressure: Elevated blood pressure Blood pressure disposition: Referred to PCP Impression Primary Impression: Acute cholecystitis Departure Information Dispostion Being Evaluated By Surgeon Condition FAIR Prescriptions No Active Prescriptions or Reported Meds Referrals Tavo Ann D.O. (PCP) Patient Instructions My [facility]
[2017-04-20 22:29] VITALS: PULSE 77; O2SAT 97
[2017-04-20 23:20] VITALS: BP 129/87; PULSE 115; TEMP 37.2; O2SAT 94
[2017-04-21] VITALS: PULSE 88
[2017-04-21] MEDS: HYDROmorphone INJ 1 MG/ML SYR IV PRN ×3 (03:42→09:52)
[2017-04-21] MEDS: METRONIDAZOLE / NSS 500 MG in PREMIXED NSS 0 ML IV SCH (06:08)
[2017-04-21 06:18] LABS: BASO % 0.1 %; BASO ABS # 0.02 K/uL (0-0.2); EOS % 0.3 %; EOS ABS # 0.06 K/uL (0-0.5); HEMATOCRIT 50.5 % (42-52); HEMOGLOBIN 17.5 g/dL (14.0-18.0); IG# 0.09 K/uL (0.00-0.02); LYMPH ABS # 1.27 K/uL (1.2-3.4); MEAN CELL VOLUME 87.8 fL (80-100); MEAN CORPUSCULAR HEMOGLOBIN 30.4 pg (25-34); MEAN CORPUSCULAR HGB CONC 34.7 g/dl (32-36); MEAN PLATELET VOLUME 9.3 fL (7.4-10.4); MONO % 12.7 %; MONO ABS # 2.31 K/uL (0.11-0.59); NEUT % 79.4 %; NEUT ABS # 14.41 K/uL (1.4-6.5); PLATELET COUNT 230 K/uL (130-400); RED CELL DISTRIBUTION WIDTH CV 13.3 % (11.5-14.5); RED CELL DISTRIBUTION WIDTH SD 42.8 fL (36.4-46.3); WHITE BLOOD COUNT 18.16 K/uL (4.8-10.8)
[2017-04-21 06:57] LABS: ALBUMIN 3.3 gm/dl (3.4-5.0); CALCIUM 8.4 mg/dl (8.5-10.1); CREATININE 1.11 mg/dl (0.60-1.40); POTASSIUM 4.2 mmol/L (3.5-5.1); TOTAL PROTEIN 7.2 gm/dl (6.4-8.2)
[2017-04-21 07:18] VITALS: BP 134/83; PULSE 99; TEMP 36.9; O2SAT 94
[2017-04-21] MEDS ORDERED: NURSING VERBAL MED ORDER ONE (07:30)
--- NOTE | 2017-04-21 08:17 | Surgery Progress Note ---
Surgery Progress Note Date of Service Apr 21, 2017. Subjective pt is still have RUQ pain, no nausea, no vomiting, Objective Vital Signs: Date Time Temp Pulse Resp B/P (MAP) Pulse Ox O2 Delivery O2 Flow Rate FiO2 04/21/17 07:18 36.9 99 12 134/83 (100) 94 Room Air 04/21/17 00:00 88 04/20/17 23:30 CPAP 04/20/17 23:20 37.2 115 18 129/87 (101) 94 BiPAP 04/20/17 22:29 77 97 04/20/17 15:59 36.6 77 18 169/107 (127) 97 Room Air 04/20/17 15:15 Room Air 04/20/17 11:35 36.5 60 18 148/97 (114) 95 Room Air 04/20/17 10:55 Room Air 04/20/17 10:32 91 16 173/105 92 04/20/17 09:31 82 16 181/107 97 Room Air General Appearance: WD/WN, + mild distress Head: normocephalic Neck: supple, no JVD Respiratory/Chest: chest non-tender, lungs clear, normal breath sounds, no respiratory distress Cardiovascular: regular rate, rhythm, no edema, no gallop, no JVD Abdomen: normal bowel sounds, non tender, non distended, soft Extremities: normal range of motion, non-tender, normal inspection Laboratory Results: Results Past 24 Hours Test 04/21/17 05:40 Range/Units White Blood Count 18.16 4.8-10.8 K/uL Red Blood Count 5.75 4.7-6.1 M/uL Hemoglobin 17.5 14.0-18.0 g/dL Hematocrit 50.5 42-52 % Mean Corpuscular Volume 87.8 80-100 fL Mean Corpuscular Hemoglobin 30.4 25-34 pg Mean Corpuscular Hemoglobin Concent 34.7 32-36 g/dl Platelet Count 230 130-400 K/uL Mean Platelet Volume 9.3 7.4-10.4 fL Neutrophils (%) (Auto) 79.4 % Lymphocytes (%) (Auto) 7.0 % Monocytes (%) (Auto) 12.7 % Eosinophils (%) (Auto) 0.3 % Basophils (%) (Auto) 0.1 % Neutrophils # (Auto) 14.41 1.4-6.5 K/uL Lymphocytes # (Auto) 1.27 1.2-3.4 K/uL Monocytes # (Auto) 2.31 0.11-0.59 K/uL Eosinophils # (Auto) 0.06 0-0.5 K/uL Basophils # (Auto) 0.02 0-0.2 K/uL RDW Standard Deviation 42.8 36.4-46.3 fL RDW Coefficient of Variation 13.3 11.5-14.5 % Immature Granulocyte % (Auto) 0.5 % Immature Granulocyte # (Auto) 0.09 0.00-0.02 K/uL Sodium Level 132 136-145 mmol/L Potassium Level 4.2 3.5-5.1 mmol/L Chloride Level 102 98-107 mmol/L Carbon Dioxide Level 24 21-32 mmol/L Anion Gap 6.0 3-11 mmol/L Blood Urea Nitrogen 14 7-18 mg/dl Creatinine 1.11 0.60-1.40 mg/dl Est Creatinine Clear Calc Drug Dose 111.8 ml/min Estimated GFR () 94.4 Estimated GFR (Non- 81.5 BUN/Creatinine Ratio 12.7 10-20 Random Glucose 119 70-99 mg/dl Calcium Level 8.4 8.5-10.1 mg/dl Total Bilirubin 2.5 0.2-1 mg/dl Aspartate Amino Transf (AST/SGOT) 41 15-37 U/L Alanine Aminotransferase (ALT/SGPT) 93 12-78 U/L Alkaline Phosphatase 94 45-117 U/L Total Protein 7.2 6.4-8.2 gm/dl Albumin 3.3 3.4-5.0 gm/dl Globulin 3.9 2.5-4.0 gm/dl Albumin/Globulin Ratio 0.8 0.9-2 Chemistry Specimen Hemolysis Assessment & Plan IMP : acute cholecystitis, possible CBD stone, cholangitis? Plan; start zosyn consule GI for possible ERCP will F/U pt agrees with the plan
[2017-04-21] MEDS ORDERED: LORAZEPAM INJ 1 MG in SYRINGE 0.5 ML IV PRN (08:30)
--- NOTE | 2017-04-21 08:43 | Gastrointestinal Consultation ---
Gastrointestinal Consultation Date of Consultation: Apr 21, 2017 Attending Physician: Dr. Cartwright Consulting Physician: Dr. Rg Reason for Consultation: CBD stone History of Present Illness Patient is a 41 year old male patient currently w/o a PCP (Previously saw Dr. Ann). The pt has an unremarkable PMH/PSH history and rarely drinks alcohol (2- 3 times/yr). He began with moderately severe upper abdomen pressure on Thursday evening, after eating pork and sauerkraut. The pain has been fairly persistent since that time, now diffusely over the entire abdomen, radiating to his back. He has had dark urine but denies any acholic stools or jaundice. He arrived at our ED early Thursday morning. His T bili on arrival was 1.4 and today is 1.5, his AST was 22 and today 41, his ALT was 43, now 93 and Alk Phos was 122 and today is 84. WBC yesterday was 13, and today is 18. His lipase was normal on arrival. US on arrival with Cholelithiasis, CBD 7mm. Hepatomegaly and severe hepatic steatosis was also seen. He recalls having episode of similar pain previously, most recently a year ago. He is seen and examined while he is sitting up in bed, saying it hurts too much to lay flat. He is awake, alert, oriented and hemodynamically stable. Past Medical/Surgical History Past Medical History: 1. GERD, not recently on medication and no recent symptoms. Past Surgical History: No prior surgeries Social History Smoking Status: Never Smoker Alcohol Use: occasionally Drug Use: none Marital Status: Housing Status: lives with family Occupation Status: employed Allergies Coded Allergies: No Known Allergies (Unverified , 04/20/17) Current Medications Home Meds and Scripts Medications Dose Route/Sig Max Daily Dose Days Date Category No Active Prescriptions or Reported Medications Rx Review of Systems Constitutional: + chills, + sweats, No fever, No weight loss, No weakness Eyes: No eye pain, No redness ENT: No sore throat, No trouble swallowing, No pain on swallowing Respiratory: No cough, No wheezing, No shortness of breath, No dyspnea on exertion Cardiac: No chest pain, No edema, No palpitations Abdomen: + see HPI Neuro: No memory loss, No weakness, No numbness/tingling, No vertigo, No balance problems Psych: No depression symptoms, No anxiety, No insomnia Heme: No abnormal bleeding/bruising, No night sweats Endo: No excessive thirst, No excessive urination Skin: No rash, No itch, No new/changing skin lesions, No jaundice Physical Exam Date Time Temp Pulse Resp B/P (MAP) Pulse Ox O2 Delivery O2 Flow Rate FiO2 04/21/17 07:18 36.9 99 12 134/83 (100) 94 Room Air 04/21/17 00:00 88 04/20/17 23:30 CPAP 04/20/17 23:20 37.2 115 18 129/87 (101) 94 BiPAP 04/20/17 22:29 77 97 04/20/17 15:59 36.6 77 18 169/107 (127) 97 Room Air 04/20/17 15:15 Room Air 04/20/17 11:35 36.5 60 18 148/97 (114) 95 Room Air 04/20/17 10:55 Room Air 04/20/17 10:32 91 16 173/105 92 04/20/17 09:31 82 16 181/107 97 Room Air General Appearance: + moderate distress Eyes: normal inspection, EOMI Neck: supple, no adenopathy, thyroid normal Respiratory/Chest: chest non-tender, lungs clear, normal breath sounds, no accessory muscle use Cardiovascular: regular rate, rhythm, no JVD, no murmur Abdomen: normal bowel sounds, soft, no organomegaly, + tenderness (moderate tenderness throughout, worse in the epigastric area) Extremities: normal inspection, no pedal edema, normal capillary refill Neurologic/Psych: alert, normal mood/affect, oriented x 3 Skin: normal color, no jaundice, warm/dry, no rash Laboratory Results Last 24 Hours Test 04/21/17 05:40 White Blood Count 18.16 K/uL Red Blood Count 5.75 M/uL Hemoglobin 17.5 g/dL Hematocrit 50.5 % Mean Corpuscular Volume 87.8 fL Mean Corpuscular Hemoglobin 30.4 pg Mean Corpuscular Hemoglobin Concent 34.7 g/dl Platelet Count 230 K/uL Mean Platelet Volume 9.3 fL Neutrophils (%) (Auto) 79.4 % Lymphocytes (%) (Auto) 7.0 % Monocytes (%) (Auto) 12.7 % Eosinophils (%) (Auto) 0.3 % Basophils (%) (Auto) 0.1 % Neutrophils # (Auto) 14.41 K/uL Lymphocytes # (Auto) 1.27 K/uL Monocytes # (Auto) 2.31 K/uL Eosinophils # (Auto) 0.06 K/uL Basophils # (Auto) 0.02 K/uL RDW Standard Deviation 42.8 fL RDW Coefficient of Variation 13.3 % Immature Granulocyte % (Auto) 0.5 % Immature Granulocyte # (Auto) 0.09 K/uL Sodium Level 132 mmol/L Potassium Level 4.2 mmol/L Chloride Level 102 mmol/L Carbon Dioxide Level 24 mmol/L Anion Gap 6.0 mmol/L Blood Urea Nitrogen 14 mg/dl Creatinine 1.11 mg/dl Est Creatinine Clear Calc Drug Dose 111.8 ml/min Estimated GFR () 94.4 Estimated GFR (Non- 81.5 BUN/Creatinine Ratio 12.7 Random Glucose 119 mg/dl Calcium Level 8.4 mg/dl Total Bilirubin 2.5 mg/dl Aspartate Amino Transf (AST/SGOT) 41 U/L Alanine Aminotransferase (ALT/SGPT) 93 U/L Alkaline Phosphatase 94 U/L Total Protein 7.2 gm/dl Albumin 3.3 gm/dl Globulin 3.9 gm/dl Albumin/Globulin Ratio 0.8 Chemistry Specimen Hemolysis Impression Patient is a 41 year old male with cholelithiasis, mildly elevated LFTs. There is a question of choledocholithiasis in addition to the cholecystitis. Plan 1. MRCP this morning. 2. If MRCP with CBD stones/obstruction, then will plan for ERCP. 3. Will need eventual cholecystectomy. 4. Appears dry, will increase IV fluids to 150/hr. 5. Will recheck lipase to verify no pancreatitis. Addendum: MRCP negative for CBD stone. Discussed with Dr. Cartwright who plans for cholecystectomy tomorrow. Can have clear liquids po tonight. NPO after midnight. I performed a history and physical examination of the patient. I have discussed the patient's case, impression and plan with RACHEL Colby. Her note reflects my findings and plan. No evidence of CBD stone on MRI. Most c/ w cholecystitis. Awaiting surgery. We also discussed fatty liver and roll of weight loss and exercise with patient and present at bedside. Ruben Rg MD
[2017-04-21] MEDS ORDERED: PIPERACILL/TAZOBAC CONSULT ACTIVE PRN (08:45)
[2017-04-21] MEDS ORDERED: PIPERACILL/TAZOBAC IV 3.375 GM in DEXTROSE 5% 100ML IV ONE (09:00)
[2017-04-21] MEDS: D5W AND 1/2NSS + 20MEQ KCL 1,000 ML IV SCH ×3 (10:21→20:32)
--- NOTE | 2017-04-21 13:14 | DIAGNOSTIC IMAGING REPORT ---
MRCP CLINICAL HISTORY: Right upper quadrant abdominal pain. Abnormal abdominal ultrasound COMPARISON STUDY: Biliary ultrasound dated 04/20/2017 FINDINGS: There is trace ascites. There is pericholecystic edema. There is gallbladder wall thickening. Multiple gallbladder calculi are visualized. There is periduodenal edema. The spleen is enlarged measuring 14 cm. No common bile duct calculi are visualized. The common bile duct is of normal caliber. No pancreatic ductal abnormalities are visualized. IMPRESSION: 1. MRI findings indicative of acute cholecystitis. There are multiple gallbladder calculi present. There is pericholecystic edema. There is gallbladder wall thickening. 2. No common bile duct calculi identified 3. Trace ascites 4. Splenomegaly Electronically signed by: Mau Pinedo M.D. 04/21/2017 1:12 PM Dictated Date/Time: 04/21/2017 1:07 PM
[2017-04-21 15:54] VITALS: BP 134/80; PULSE 108; TEMP 36.9; O2SAT 93
[2017-04-21] MEDS: PIPERACILL/TAZOBAC IV 3.375 GM in DEXTROSE 5% 100ML 100 ML IV SCH ×2 (16:30→23:33)
--- NOTE | 2017-04-21 17:54 | Anesthesiology Progress Note ---
Anesthesia Progress Note Date of Service Apr 21, 2017. Progress Notes This is a 41 y/o w male w/ acute cholecystitis for Lap. Cholecystectomy.PMHx is sig. for obesity,sleep apnea on CPAP,stable GERD, and probable HTN.Chart reviewed ,pt seen and examined .Anesthesia discussed w/ pt.,including risks vs benefits ,all questions answered. Informed consent obtained. ASA 2
[2017-04-21 23:06] VITALS: BP 136/93; PULSE 104; TEMP 37.2; O2SAT 94
[2017-04-21 23:12] VITALS: PULSE 95; O2SAT 95
[2017-04-22] VITALS (9 sets, daily range): BP systolic 115–138; BP diastolic 76–91; PULSE 68–104; TEMP 36.4–37.4; O2SAT 92–97
[2017-04-22] MEDS: D5W AND 1/2NSS + 20MEQ KCL 1,000 ML IV SCH ×4 (01:53→23:35)
[2017-04-22] MEDS: HYDROmorphone INJ 1 MG/ML SYR IV PRN ×2 (08:10→22:40)
[2017-04-22] MEDS: PIPERACILL/TAZOBAC IV 3.375 GM in DEXTROSE 5% 100ML 100 ML IV SCH ×3 (08:10→23:35)
[2017-04-22 08:19] LABS: HEMATOCRIT 46.3 % (42-52); HEMOGLOBIN 15.6 g/dL (14.0-18.0); MEAN CELL VOLUME 88.9 fL (80-100); MEAN CORPUSCULAR HEMOGLOBIN 29.9 pg (25-34); MEAN CORPUSCULAR HGB CONC 33.7 g/dl (32-36); MEAN PLATELET VOLUME 9.6 fL (7.4-10.4); PLATELET COUNT 201 K/uL (130-400); RED CELL DISTRIBUTION WIDTH CV 13.4 % (11.5-14.5); WHITE BLOOD COUNT 14.01 K/uL (4.8-10.8)
[2017-04-22 09:11] LABS: ALBUMIN 2.7 gm/dl (3.4-5.0); CALCIUM 8.3 mg/dl (8.5-10.1); CREATININE 1.16 mg/dl (0.60-1.40); POTASSIUM 3.9 mmol/L (3.5-5.1)
[2017-04-22 09:13] LABS: TOTAL PROTEIN 6.6 gm/dl (6.4-8.2)
[2017-04-22] MEDS ORDERED: FENTANYL CITRATE INJ 50 MCG/1 ML 2 ML VIAL ONE ×6 (10:18→14:03)
[2017-04-22] MEDS ORDERED: MIDAZOLAM HCL 1 MG/ML 2ML VIAL ONE ×2 (10:19→10:42)
[2017-04-22] MEDS ORDERED: EpHEDrine SULFATE INJ 50 MG/ML AMP IV PRN (11:00)
[2017-04-22] MEDS ORDERED: ONDANSETRON INJ 2 MG/ML 2 ML VIAL IV PRN (11:00)
[2017-04-22] MEDS ORDERED: HYDROmorphone INJ 1 MG/ML SYR IV PRN (11:00)
[2017-04-22] MEDS ORDERED: ATROPINE SULFATE 0.1 MG/ML 5ML SYR IV PRN (11:00)
--- NOTE | 2017-04-22 11:00 | History & Physical Bridge Note ---
H&P Re-Evaluation Bridge Note: I have examined the patient, reviewed the History & Physical and in the interval since the performance of the History & Physical I have noted the following changes of clinical significance: No changes noted
[2017-04-22] MEDS ORDERED: LIDOCAINE HCL 1% 20 ML VIAL ONE (11:03)
[2017-04-22] MEDS ORDERED: BACITRACIN OINT 15 GM TUBE ONE (11:03)
[2017-04-22] MEDS ORDERED: CEFAZOLIN SOD 2000MG/10 ML IV PUSH IV ONE (11:03)
[2017-04-22] MEDS ORDERED: BUPIVACAINE 0.5 % 5 MG/1 ML MPF 30ML VIAL ONE (11:04)
[2017-04-22] MEDS ORDERED: CONRAY 60% 50 ML VIAL ONE (11:20)
[2017-04-22] MEDS ORDERED: ONDANSETRON INJ 2 MG/ML 2 ML VIAL ONE (11:54)
[2017-04-22] MEDS ORDERED: GLYCOPYRROLATE INJ 0.2 MG/ML VIAL ONE (11:54)
[2017-04-22] MEDS ORDERED: LIDOCAINE HCL 2% 2 ML VIAL (20MG/ML) ONE (11:54)
[2017-04-22] MEDS ORDERED: ROCURONIUM BROMIDE 10 MG/ML 5 ML VIAL IV ONE (11:54)
[2017-04-22] MEDS ORDERED: DEXAMETHASONE SOD INJ 4 MG/ML VIAL ONE (11:54)
[2017-04-22] MEDS ORDERED: PROPOFOL IV EMULSION 10 MG/ML 20 ML VIAL IV ONE (11:54)
[2017-04-22] MEDS ORDERED: NEOSTIGMINE METHYLSULFATE 5 MG/5 ML SYR ONE (11:54)
[2017-04-22] MEDS ORDERED: LABETALOL HCL IV 5 MG/ML 20ML IV ONE (12:18)
--- NOTE | 2017-04-22 14:21 | [facility] Post Operative Brief Note ---
Immediate Operative Summary Operative Date Apr 22, 2017. Pre-Operative Diagnosis Acute cholecystitis, with cholelithiasis Post-Operative Diagnosis Acute cholecystitis, with cholelithiasis, gangrenous gallbladder Procedure(s) Performed Laparoscopic Subtotal Cholecystectomy Surgeon Dr. Cartwright Banquet Set Up Person Surgeon(s) Gladys Springer PA-C Estimated Blood Loss 50 cc Findings acute cholecystitis, gangrene gallbladder Fluids (cc crystalloids) 2000ml Specimens A: Gallbladder and contents Drains FRANKIE X 1 Anesthesia general Complication(s) None Disposition Recovery Room / PACU
[2017-04-22] MEDS ORDERED: ACETAMINOPHEN 1000 MG/100 ML IV IV ONE (14:29)
[2017-04-22] MEDS: FENTANYL CITRATE INJ 50 MCG/1 ML 2 ML VIAL IV PRN ×2 (15:03→15:08)
--- NOTE | 2017-04-22 15:03 | OPERATIVE REPORT ---
DATE OF OPERATION: 04/22/2017 PREOPERATIVE DIAGNOSIS: Acute cholecystitis, cholelithiasis. POSTOPERATIVE DIAGNOSIS: Acute cholecystitis, gangrene gallbladder, cholelithiasis. OPERATION: Laparoscopic subtotal cholecystectomy. SURGEON: Kip Cartwright MD GROMMET MACHINE OPERATOR: Gladys Springer PA-C. ANESTHESIA: General. ESTIMATED BLOOD LOSS: About 50 mL. FINDINGS: Acute cholecystitis, gangrenous gallbladder, cholelithiasis. COMPLICATIONS: None. INDICATIONS FOR THE PROCEDURE: This is a 41-year-old gentleman who presented to the ED with 3 days history of right upper quadrant pain. The patient was diagnosed with acute cholecystitis. The patient will be required to do laparoscopic cholecystectomy, possible open, possible cholangiogram. I did talk to the patient about the benefit and risk, alternate procedure. I indicated the risks may include but not limited such as bleeding, infection, injury to common bile duct, injury to the bowel, bile leak, may need ERCP, may need subtotal cholecystectomy, myocardial infarction, DVT, stroke, even . The patient and the patient's family member understands. The patient signed informed consent and I answered all questions. They agreed to proceed with procedure. DETAILS OF PROCEDURE: We brought the patient to the OR, put the patient in the supine position. The patient received SCD on bilateral legs to prevent DVT. Also, patient received 2 grams Ancef IV for prophylactic antibiotic. The patient received general anesthesia without difficulty. The abdomen was prepped and draped in routine sterile fashion. After time out, I injected the local anesthesia by using 1% lidocaine mixed with 0.5% Marcaine just above the umbilical. Then I made a small incision just above umbilical, opened fascia and opened peritoneum under direct vision and put a Rika trocar in, connected to CO2 to create pneumoperitoneum. Flow rate at 6 liter per minute, pressure not more than 14 mmHg. Once we get a nice pneumoperitoneum, we put a camera in to look around the abdomen shows no more findings on the stomach, small bowel, large bowel and the liver; however, patient had significant acute cholecystitis, omentum covers the gallbladder with gangrene of the gallbladder. Gallbladder was significantly distended. At this moment, we put another 3.5 mm trocar on the right upper quadrant area. Once all trocars in I mobilized the gallbladder because of significant omental adhesion to the gallbladder. Once we take down the omentum from gallbladder we used a large needle and decompressed the gallbladder, however this significant acute cholecystitis the gallbladder was significantly wall thickening and edema with gangrene it is difficult to see the cystic duct location. At this moment, we decided to do the subtotal cholecystectomy, we used takedown technique to take down 90% of the gallbladder, then I used the Endo-JUNE staple transection near the cystic duct. We checked, no active bleeding, no bile leak after we transected the gallbladder. We removed the gallbladder through the catch bag. At this moment, we used the harmonic, opened the gallbladder again to look at the lumen inside, no remaining stone and no active bleeding. Then I used another Endo-JUNE stable 4.8 mm x 45 mm transection the base near the pouch over the gallbladder. Again, rechecked no active bleeding, no bile leak and again we removed about 90% of the gallbladder, leaving about the last 10% of the gallbladder. Hemostasis was obtained and then we put a 10 mm FRANKIE drainage and then we rechecked inside and no active bleeding from the liver bed, no bile leak. Then we removed all trocars under direct vision. No active bleeding from trocar sites. The pneumoperitoneum was released. Then we used 3-0 nylon fixed FRANKIE drain on the skin and then we closed the umbilical incision, fascial layer by using #1 Vicryl [id number] x2 and closed the epigastric area incision, fascial layer by using #1 Vicryl [id number] x2 and closed subcutaneous layer by using 2-0 Vicryl on the umbilical incision, then closed skin by using 4-0 Vicryl. Epigastric port site we closed the skin by using 4-0 Vicryl and 2-0 Vicryl for subcutaneous layer, another two 5 mm trocar site closed skin only by using 4-0 Vicryl. We put the dressing on. The patient tolerated the procedure well. Estimated blood loss about 50 mL. All the instrument, needle and sponge count correct x2 at the end of case. Specimen sent to pathology. After the procedure, I did talk to the patient's family member, the patient's and the patient's parents about the OR finding and procedure we did, they understand. I attest to the content of the Intraoperative Record and any orders documented therein. Any exceptions are noted below. ROBERTD
--- NOTE | 2017-04-22 15:29 | Anesthesiology Progress Note ---
Anesthesia Post Op Note Date & Time Apr 22, 2017 at 15:29 Vital Signs Pain Intensity: 4 Vital Signs Past 12 Hours Date Time Temp Pulse Resp B/P (MAP) Pulse Ox O2 Delivery O2 Flow Rate FiO2 04/22/17 15:20 36.4 74 18 104/77 93 Nasal Cannula 4 04/22/17 15:10 86 18 116/74 95 Nasal Cannula 4 04/22/17 15:00 60 18 113/70 95 Nasal Cannula 4 04/22/17 14:50 67 18 130/80 95 Oxymask 10 04/22/17 14:40 86 18 129/81 93 Oxymask 10 04/22/17 14:31 37.2 86 18 111/74 94 Oxymask 10 04/22/17 08:40 94 Room Air 04/22/17 08:15 Room Air 04/22/17 07:33 37.4 104 18 134/88 (103) 94 Room Air 04/22/17 07:06 36.9 101 18 138/84 (102) 95 Room Air Notes Mental Status: alert / awake / arousable, participated in evaluation Pt Amnestic to Procedure: Yes Nausea / Vomiting: adequately controlled Pain: adequately controlled Airway Patency, RR, SpO2: stable & adequate BP & HR: stable & adequate Hydration State: stable & adequate Anesthetic Complications: no major complications apparent
[2017-04-22] MEDS: OXYCODONE/ACETAMINOPHEN 5-325 TAB PO PRN ×2 (18:35→23:34)
[2017-04-23] MEDS: HYDROmorphone INJ 1 MG/ML SYR IV PRN (01:50)
[2017-04-23 03:22] VITALS: BP 123/78; PULSE 66; TEMP 36.5; O2SAT 99
[2017-04-23] MEDS ORDERED: CEFAZOLIN SOD 2000MG/10 ML IV PUSH IV ONE (06:00)
[2017-04-23] MEDS: D5W AND 1/2NSS + 20MEQ KCL 1,000 ML IV SCH ×2 (06:05→22:08)
[2017-04-23 07:11] LABS: BASO % 0.1 %; BASO ABS # 0.01 K/uL (0-0.2); EOS % 0.2 %; EOS ABS # 0.03 K/uL (0-0.5); HEMATOCRIT 41.4 % (42-52); HEMOGLOBIN 13.9 g/dL (14.0-18.0); IG# 0.03 K/uL (0.00-0.02); LYMPH % 7.9 %; LYMPH ABS # 1.19 K/uL (1.2-3.4); MEAN CELL VOLUME 89.2 fL (80-100); MEAN CORPUSCULAR HGB CONC 33.6 g/dl (32-36); MEAN PLATELET VOLUME 9.6 fL (7.4-10.4); MONO % 8.5 %; MONO ABS # 1.28 K/uL (0.11-0.59); NEUT % 83.1 %; NEUT ABS # 12.51 K/uL (1.4-6.5); PLATELET COUNT 237 K/uL (130-400); RED CELL DISTRIBUTION WIDTH CV 13.2 % (11.5-14.5); RED CELL DISTRIBUTION WIDTH SD 43.1 fL (36.4-46.3); WHITE BLOOD COUNT 15.05 K/uL (4.8-10.8)
[2017-04-23 07:20] VITALS: O2SAT 95
[2017-04-23 07:25] VITALS: BP 130/70; PULSE 72; TEMP 36.5; O2SAT 95
[2017-04-23 07:47] LABS: ALBUMIN 2.4 gm/dl (3.4-5.0); CALCIUM 8.5 mg/dl (8.5-10.1); CREATININE 1.07 mg/dl (0.60-1.40); POTASSIUM 4.7 mmol/L (3.5-5.1); TOTAL PROTEIN 6.5 gm/dl (6.4-8.2)
[2017-04-23] MEDS ORDERED: BISACODYL 5 MG TABEC PO ONE (08:15)
[2017-04-23] MEDS: PIPERACILL/TAZOBAC IV 3.375 GM in DEXTROSE 5% 100ML 100 ML IV SCH ×3 (08:27→23:23)
--- NOTE | 2017-04-23 08:30 | Surgery Progress Note ---
Surgery Progress Note Date of Service Apr 23, 2017. Subjective Post OP Day: 1 + feeling well F/U S/P laparoscopic subtotal cholecystectomy pt is doing better, less abdominal pain, pt tolerated diet, pt denies nausea, no vomiting, I up date to pt about OR finding and the procedure we did, pt and his understood, I answered all questions, pt said his right hand first and second fingers are numb, but pt said is better compare yesterday, Bilt hands function is normal, Objective Vital Signs: Date Time Temp Pulse Resp B/P (MAP) Pulse Ox O2 Delivery O2 Flow Rate FiO2 04/23/17 07:25 36.5 72 18 130/70 (90) 95 CPAP 04/23/17 03:22 36.5 66 16 123/78 (93) 99 CPAP 04/22/17 23:25 Room Air 04/22/17 22:54 36.8 68 20 138/84 (102) 94 Room Air 04/22/17 18:38 36.9 77 18 128/76 (93) 95 Nasal Cannula 2.0 04/22/17 17:45 36.4 68 18 136/86 (103) 97 Nasal Cannula 4.0 04/22/17 16:40 36.4 83 16 130/80 (97) 97 Nasal Cannula 4.0 04/22/17 16:10 36.8 93 18 123/78 (93) 92 Nasal Cannula 4.0 04/22/17 15:40 93 Nasal Cannula 4.0 04/22/17 15:40 93 Nasal Cannula 4.0 04/22/17 15:40 36.9 68 18 115/91 (99) 93 Nasal Cannula 4.0 04/22/17 15:20 36.4 74 18 104/77 93 Nasal Cannula 4 04/22/17 15:10 86 18 116/74 95 Nasal Cannula 4 04/22/17 15:00 60 18 113/70 95 Nasal Cannula 4 04/22/17 14:50 67 18 130/80 95 Oxymask 10 04/22/17 14:40 86 18 129/81 93 Oxymask 10 04/22/17 14:31 37.2 86 18 111/74 94 Oxymask 10 04/22/17 08:40 94 Room Air General Appearance: WD/WN, no apparent distress Head: normocephalic Neck: supple, no JVD Respiratory/Chest: chest non-tender, lungs clear Cardiovascular: regular rate, rhythm, no edema, no gallop, no JVD, no murmur Abdomen: normal bowel sounds, non tender, non distended, soft, no organomegaly Incision(s): clean, dry, intact Extremities: normal range of motion, non-tender, normal inspection (some edema on right arm, IN site on right arm, ) Laboratory Results: Results Past 24 Hours Test 04/23/17 06:53 Range/Units White Blood Count 15.05 4.8-10.8 K/uL Red Blood Count 4.64 4.7-6.1 M/uL Hemoglobin 13.9 14.0-18.0 g/dL Hematocrit 41.4 42-52 % Mean Corpuscular Volume 89.2 80-100 fL Mean Corpuscular Hemoglobin 30.0 25-34 pg Mean Corpuscular Hemoglobin Concent 33.6 32-36 g/dl Platelet Count 237 130-400 K/uL Mean Platelet Volume 9.6 7.4-10.4 fL Neutrophils (%) (Auto) 83.1 % Lymphocytes (%) (Auto) 7.9 % Monocytes (%) (Auto) 8.5 % Eosinophils (%) (Auto) 0.2 % Basophils (%) (Auto) 0.1 % Neutrophils # (Auto) 12.51 1.4-6.5 K/uL Lymphocytes # (Auto) 1.19 1.2-3.4 K/uL Monocytes # (Auto) 1.28 0.11-0.59 K/uL Eosinophils # (Auto) 0.03 0-0.5 K/uL Basophils # (Auto) 0.01 0-0.2 K/uL RDW Standard Deviation 43.1 36.4-46.3 fL RDW Coefficient of Variation 13.2 11.5-14.5 % Immature Granulocyte % (Auto) 0.2 % Immature Granulocyte # (Auto) 0.03 0.00-0.02 K/uL Sodium Level 136 136-145 mmol/L Potassium Level 4.7 3.5-5.1 mmol/L Chloride Level 104 98-107 mmol/L Carbon Dioxide Level 28 21-32 mmol/L Anion Gap 4.0 3-11 mmol/L Blood Urea Nitrogen 15 7-18 mg/dl Creatinine 1.07 0.60-1.40 mg/dl Est Creatinine Clear Calc Drug Dose 116.0 ml/min Estimated GFR () 98.7 Estimated GFR (Non- 85.2 BUN/Creatinine Ratio 14.2 10-20 Random Glucose 128 70-99 mg/dl Calcium Level 8.5 8.5-10.1 mg/dl Total Bilirubin 0.9 0.2-1 mg/dl Aspartate Amino Transf (AST/SGOT) 11 15-37 U/L Alanine Aminotransferase (ALT/SGPT) 43 12-78 U/L Alkaline Phosphatase 75 45-117 U/L Total Protein 6.5 6.4-8.2 gm/dl Albumin 2.4 3.4-5.0 gm/dl Globulin 4.1 2.5-4.0 gm/dl Albumin/Globulin Ratio 0.6 0.9-2 Lipase 65 73-393 U/L Assessment & Plan IMP : acute cholecystitis, possible CBD stone, cholangitis? Plan; start zosyn consule GI for possible ERCP will F/U pt agrees with the plan 04/23/2017 doing fine, FRANKIE 150ml clear tolerated diet OOB continue iv antibiotic dulcolax 10 mg po x1 will F/U IMP : acute cholecystitis, possible CBD stone, cholangitis? Plan; start zosyn consule GI for possible ERCP will F/U pt agrees with the plan
--- NOTE | 2017-04-23 09:06 | Anesthesiology Progress Note ---
Anesthesia Post Op Note Date & Time Apr 23, 2017 at 09:05 Vital Signs Pain Intensity: 8.0 Vital Signs Past 12 Hours Date Time Temp Pulse Resp B/P (MAP) Pulse Ox O2 Delivery O2 Flow Rate FiO2 04/23/17 07:25 36.5 72 18 130/70 (90) 95 CPAP 04/23/17 03:22 36.5 66 16 123/78 (93) 99 CPAP 04/22/17 23:25 Room Air 04/22/17 22:54 36.8 68 20 138/84 (102) 94 Room Air Notes Mental Status: alert / awake / arousable, participated in evaluation Pt Amnestic to Procedure: Yes Nausea / Vomiting: adequately controlled Pain: adequately controlled Airway Patency, RR, SpO2: stable & adequate BP & HR: stable & adequate Hydration State: stable & adequate Anesthetic Complications: no major complications apparent
[2017-04-23] MEDS: OXYCODONE/ACETAMINOPHEN 5-325 TAB PO PRN ×2 (11:11→19:59)
[2017-04-23 15:10] VITALS: BP 125/75; PULSE 85; TEMP 36.6; O2SAT 94
[2017-04-23 22:52] VITALS: BP 123/76; PULSE 68; TEMP 37; O2SAT 95
[2017-04-24] MEDS: OXYCODONE/ACETAMINOPHEN 5-325 TAB PO PRN ×2 (00:05→10:47)
[2017-04-24 07:42] LABS: BASO % 0.5 %; BASO ABS # 0.05 K/uL (0-0.2); EOS % 4.3 %; EOS ABS # 0.43 K/uL (0-0.5); HEMATOCRIT 42.2 % (42-52); IG# 0.02 K/uL (0.00-0.02); LYMPH % 26.8 %; LYMPH ABS # 2.66 K/uL (1.2-3.4); MEAN CORPUSCULAR HEMOGLOBIN 29.9 pg (25-34); MEAN CORPUSCULAR HGB CONC 33.2 g/dl (32-36); MEAN PLATELET VOLUME 9.3 fL (7.4-10.4); MONO ABS # 0.89 K/uL (0.11-0.59); NEUT % 59.2 %; NEUT ABS # 5.86 K/uL (1.4-6.5); PLATELET COUNT 247 K/uL (130-400); RED CELL DISTRIBUTION WIDTH CV 13.6 % (11.5-14.5); RED CELL DISTRIBUTION WIDTH SD 45.2 fL (36.4-46.3); WHITE BLOOD COUNT 9.91 K/uL (4.8-10.8)
[2017-04-24 07:47] VITALS: BP 132/78; PULSE 61; TEMP 36.9; O2SAT 94
[2017-04-24] MEDS: PIPERACILL/TAZOBAC IV 3.375 GM in DEXTROSE 5% 100ML 100 ML IV SCH (08:23)
[2017-04-24 08:50] VITALS: O2SAT 94
[2017-04-24] MEDS ORDERED: OXYC-57 PO (10:55)
--- NOTE | 2017-04-24 11:02 | Discharge Instructions ---
Discharge Instructions Date of Service Apr 24, 2017. Admission Reason for Admission: Acute Cholecystitis Discharge Discharge Diagnosis / Problem: Gangrenous Cholecystitis Discharge Goals Goal(s): Decrease discomfort, Improve function Activity Recommendations Activity Limitations: as noted below No heavy lifting over 20 pounds for 3-4 weeks No strenuous activity until cleared by surgeon No submerging incisions underwater for 2 weeks (no bathing, swimming, or hot tubs) No driving while taking narcotic pain medication or until you are pain free . Instructions / Follow-Up Instructions / Follow-Up You may shower in 2 days and then remove outer dressings. You may sponge bath and wash hair in the meantime. Try to keep dressings clean and dry Replace dressings daily or as needed to keep clean and dry Leave steri strips on incisions for 7 days and then remove. If they fall off on their own that is okay, you do not need to replace. Walking and light activity is encouraged to prevent blood clots from forming in your legs You will be given prescription for narcotic pain medication to take for moderate to severe pain. This medication may make you drowsy. You may take extra strength Tylenol or Ibuprofen as needed for mild pain. Follow-up in surgical office in 1-2 weeks, please call office at [phone] to make an appointment. Current Hospital Diet Patient's current hospital diet: Regular Diet Discharge Diet Recommended Diet: Regular Diet Procedures Procedures Performed: Laparoscopic Subtotal Cholecystectomy Pending Studies Studies pending at discharge: yes List of pending studies: Gallbladder pathology will be reviewed at follow up visit Medical Emergencies . Who to Call and When: Medical Emergencies: If at any time you feel your situation is an emergency, please call 911 immediately. . Non-Emergent Contact Non-Emergency issues call your: Primary Care Provider, Surgeon Call Non-Emergent contact if: you have a fever, temperature is above 101, your pain is not controlled, your pain is worsening, your pain is unusual for you, wound has increased drainage, wound has increased redness, wound has increased pain . "Provider Documentation" section prepared by Gladys Springer. . VTE Core Measure Inpt VTE Proph given/why not?: SCD's [place] Drug Monitoring Program Search Results: patient reviewed within database, no issues identified
[2017-04-24 11:16] VITALS: BP 132/78; PULSE 61; TEMP 36.9; O2SAT 94
--- NOTE | 2017-04-24 11:22 | Surgery Progress Note ---
Surgery Progress Note Date of Service Apr 24, 2017. Subjective Post OP Day: 2 (s/p laparoscopic cholecystectomy) + feeling well, + complaints (some pain with movement, hasnt had pain medication for 8 hours), + ambulating, + bowel movement, + flatus, + pain controlled, + diet (regular diet), No chest pain, No SOB, No nausea, No vomiting Objective Vital Signs: Date Time Temp Pulse Resp B/P (MAP) Pulse Ox O2 Delivery O2 Flow Rate FiO2 04/24/17 08:50 94 Room Air 04/24/17 08:00 Room Air 04/24/17 07:47 36.9 61 20 132/78 (96) 94 Room Air 04/23/17 23:21 Room Air 04/23/17 22:52 37.0 68 14 123/76 (92) 95 Room Air 04/23/17 15:20 Room Air 04/23/17 15:10 36.6 85 18 125/75 (92) 94 Room Air Physical Exam: FRANKIE drainage (serosanguineous) General Appearance: WD/WN, no apparent distress Head: normocephalic, atraumatic Neck: trachea midline Respiratory/Chest: lungs clear, no respiratory distress, no accessory muscle use, + decreased breath sounds Abdomen: soft, no organomegaly, no pulsatile mass, + tenderness (at RUQ at incision sites, appropriate) Incision(s): clean, dry, intact (dressings clean and dry, dried drainage of the FRANKIE dressing) Laboratory Results: Results Past 24 Hours Test 04/24/17 07:08 Range/Units White Blood Count 9.91 4.8-10.8 K/uL Red Blood Count 4.69 4.7-6.1 M/uL Hemoglobin 14.0 14.0-18.0 g/dL Hematocrit 42.2 42-52 % Mean Corpuscular Volume 90.0 80-100 fL Mean Corpuscular Hemoglobin 29.9 25-34 pg Mean Corpuscular Hemoglobin Concent 33.2 32-36 g/dl Platelet Count 247 130-400 K/uL Mean Platelet Volume 9.3 7.4-10.4 fL Neutrophils (%) (Auto) 59.2 % Lymphocytes (%) (Auto) 26.8 % Monocytes (%) (Auto) 9.0 % Eosinophils (%) (Auto) 4.3 % Basophils (%) (Auto) 0.5 % Neutrophils # (Auto) 5.86 1.4-6.5 K/uL Lymphocytes # (Auto) 2.66 1.2-3.4 K/uL Monocytes # (Auto) 0.89 0.11-0.59 K/uL Eosinophils # (Auto) 0.43 0-0.5 K/uL Basophils # (Auto) 0.05 0-0.2 K/uL RDW Standard Deviation 45.2 36.4-46.3 fL RDW Coefficient of Variation 13.6 11.5-14.5 % Immature Granulocyte % (Auto) 0.2 % Immature Granulocyte # (Auto) 0.02 0.00-0.02 K/uL Assessment & Plan POD # 2 s/p laparoscopic cholecystectomy -vitals stable, afebrile overnight - leukocytosis resolved - pain controlled - ambulating and urinating without difficulty Plan: Discharge home today FRANKIE drain removed Rx for Percocet as needed discharge instructions reviewed follow-up surgical office in 1-[address] Cartwright has seen and examined patient, agrees with above
--- NOTE | 2017-04-24 12:41 | Discharge Summary ---
Discharge Summary Dates Admission Date / Time: Apr 20, 2017 at 09:42 Discharge Date: Apr 24, 2017 Dispostion / Condition Discharge Disposition: Home Condition at Discharge: Good Principal Diagnosis (1) Acute cholecystitis Problem List (1) No active medical problems Consultations / Procedures Procedures: Subtotal laparoscopic cholecystectomy Pending Studies / Follow-Up gallbladder pathology will be reviewed at follow up visit Medication Reconciliation New Medications: Oxycodone/Acetaminophen 5MG/325MG (Percocet 5MG/325MG) Tab 1 TABLET PO Q4H PRN for Pain, #18 TAB Admission HPI Per the Admitting provider: pt is a 41 roel old male who presents to ER for one day history RUQ pain, with nausea and vomiting, the pain is located at RUQ, pt denies fever, no diarrhea, Us showed gallbladder distention, gallbladder wall thickening measuring 7 mm, gallstones and sludge. CBD measuring 7 mm. Hospital Course (1) Acute cholecystitis Patient was admitted to hospital for observation. Was placed on IV fluids, kept NPO, IV pain medication as needed, IV Zofran as needed, IV Ceftriaxone, and SCDS. Labs were repeated in the morning which showed increase in total bilirubin to 2.5 and elevation in LFTS. AST 41, ALT 93 and alk phos was normal at 94. Lipase normal at 111. IV Zosyn was added to antibiotics. GI was consulted who recommend MRCP which showed evidence of acute cholecystitis, multiple gallstones, and pericholecystic edema and fluid. No choledocholithiasis seen. Patient was scheduled for laparoscopic cholecystectomy on 04/22/2017. Patient was found to have severe acute cholecystitis with a gangrenous gallbladder. The surgery was very difficulty and only a subtotal cholecystectomy was able to be performed. Patient was transferred back to medical/surgical floor for post operative care. His diet was advanced to full liquids, IV pain management, IV antibiotics and fluids were continued. PO Percocet was added for pain management. Frankie drain to bulb suction. Patient was evaluated on POD # 1 who was feeling better, pain controlled, afebrile, no nausea or vomiting. His white count however was elevated at 15K therefore he was kept one more night for IV antibiotics and pain management. POD # 2 patient doing well, afebrile, no nausea or vomiting, tolerating regular diet, pain controlled with only oral pain medication. FRANKIE drain with serosanguineous output. FRANKIE drain was discontinued and patient was discharged home in stable condition. Overall hospital course was uneventful. Discharge Instructions as given to patient Copies To Primary Care Provider: Tavo Ann D.O..
== END 2017-04-24 12:30 | disposition home or self-care (01) | DRG 419 ==
LOC: C.EDB 05:03 → C.MSW 09:42 → ENRESERV 10:13
PROVIDERS: ADMIT Surgery; ATTEND Surgery
PROC: 0FB44ZZ Excision of Gallbladder, Percutaneous Endoscopic Approach (ICD-10-PCS; principal; 2017-04-22 11:00)
DX: K81.0 Acute cholecystitis (principal); K21.9 Gastro-esophageal reflux disease without esophagitis